=== PATIENT | female | born 1995 | race Caucasian/White ===

== ENCOUNTER 2022-05-11 02:04 | Emergency (ER) | payer SELFPAY ==
[~2022-05-11] VITALS: Ht 175.2 cm; Wt 100.0 kg
[2022-05-11 02:57] LABS: BILIRUBIN,URINE NEGATIVE (NEGATIVE); CLARITY,URINE CLEAR; COLOR,URINE YELLOW; GLUCOSE, URINE (UA) NEGATIVE (NEGATIVE); KETONES,URINE NEGATIVE (NEGATIVE); LEUKOCYTE ESTERASE ,URINE 3+ (NEGATIVE); NITRITE,URINE NEGATIVE (NEGATIVE); PROTEIN,URINE NEGATIVE (NEGATIVE)
[2022-05-11 03:14] LABS: BACTERIA,URINE FEW /HPF; SQUAMOUS EPITHELIAL CELL,UR 0-2 /HPF
--- NOTE | 2022-05-11 03:49 | ED GU-Female ---
General Chief Complaint: - Reproductive Stated Complaint: POSS UTI Nursing Triage Note: PT ARRIVAL TO ER WITH COMPLAINT OF BURNING WITH URINATION, URGENCY, AND BLOOD WHEN SHE WIPED. PT STATES THAT IT ALL STARTED AT MIDNIGHT TONIGHT. PT HAS HISTORY OF FREQUENT UTI'S. Source: patient Exam Limitations: no limitations History of Present Illness Date Seen by Provider: May 11, 2022 Time Seen by Provider: 02:18 Initial Comments Patient to the ER by private conveyance with chief complaint of dysuria off and on for the past month. This last episode started about a day ago. She uses AZO but has not been on any antibiotics. She is not having any nausea, back pain, history of kidney stones but she has noticed some blood-tinged urine today. She had her last menstrual period 3 days ago. She is not on control. She does not have allergies to any medications or other significant medical history. Allergies and Home Medications Allergies Coded Allergies: No Known Drug Allergies (Unverified , 05/11/22) Patient Home Medication List Home Medication List Reviewed: Yes Review of Systems Review of Systems Constitutional: No chills, No diaphoresis EENTM: No ear discharge, No ear pain Respiratory: No cough, No short of breath Cardiovascular: No edema, No palpitations Gastrointestinal: No abdominal pain, No constipation, No diarrhea, No nausea, No vomiting Genitourinary: see HPI, burning; denies discharge; dysuria, frequency; denies flank pain; hematuria All Other Systemes Reviewed Negative Unless Noted: Yes Past Mnopfhv-Qqcaco-Gfzold Hx Patient Social History Tobacco Use?: No Use of E-Cig and/or Vaping dev: No Substance use?: No Alcohol Use?: No Pt feels they are or have been: No Immunizations Up To Date Influenza Vaccine Up-to-Date: No; Not Current Past Medical History Last Menstrual Period: May 08, 2022 Physical Exam Vital Signs Vital Signs - First Documented 05/11/22 02:24 Temp 36.7 Pulse 100 Resp 18 B/P (MAP) 139/66 (90) Pulse Ox 100 O2 Delivery Room Air Capillary Refill : Less Than 3 Seconds Height, Weight, BMI Height: '" Weight: lbs. oz. kg; 32.00 BMI Method: General Appearance: WD/WN, mild distress HEENT: PERRL/EOMI, pharynx normal Neck: full range of motion, normal inspection Cardiovascular: normal peripheral pulses, regular rate, rhythm Respiratory: no respiratory distress, no accessory muscle use Neurologic/Psychiatric: alert, normal mood/affect, oriented x 3 Skin: normal color, warm/dry Progress/Results/Core Measures Suspected Sepsis SIRS Temperature: Pulse: 100 Respiratory Rate: 18 Blood Pressure 139 /66 Mean: 90 Results/Orders Lab Results Laboratory Tests Test 05/11/22 02:18 Range/Units Urine Color YELLOW Urine Clarity CLEAR Urine pH 6.0 5-9 Urine Specific [place] <=1.005 1.016-1.022 Urine Protein NEGATIVE NEGATIVE Urine Glucose (UA) NEGATIVE NEGATIVE Urine Ketones NEGATIVE NEGATIVE Urine Nitrite NEGATIVE NEGATIVE Urine Bilirubin NEGATIVE NEGATIVE Urine Urobilinogen 0.2 < = 1.0 MG/DL Urine Leukocyte Esterase 3+ H NEGATIVE Urine RBC (Auto) 3+ H NEGATIVE Urine RBC 10-25 H /HPF Urine WBC 10-25 H /HPF Urine Squamous Epithelial Cells 0-2 /HPF Urine Crystals NONE /LPF Urine Bacteria FEW H /HPF Urine Casts NONE /LPF Urine Mucus NEGATIVE /LPF Urine Culture Indicated YES My Orders Orders - JESUSITA VICENTE Ua Culture If Indicated (05/11/22 02:07) Urine Culture (05/11/22 02:18) Vital Signs/I&O 05/11/22 02:24 Temp 36.7 Pulse 100 Resp 18 B/P (MAP) 139/66 (90) Pulse Ox 100 O2 Delivery Room Air Capillary Refill : Less Than 3 Seconds Blood Pressure Mean: 90 Progress Note : Time: 03:52 Progress Note Gram of Rocephin and 60 mg IM Toradol for discomfort. Counseled appropriate use of AZO and role for antibiotics. We will put her on cephalexin for 5 days. Departure Impression Primary Impression: Urinary tract infection Qualified Codes: N30.01 - Acute cystitis with hematuria Disposition: HOME, SELF-CARE Condition: Stable Departure-Patient Inst. Decision time for Depature: 03:52 Referrals: NO,LOCAL PHYSICIAN (PCP/Family) Primary Care Physician Patient Instructions: Urinary Tract Infection, Adult (DC) Add. Discharge Instructions: Drink lots of fluids. Tylenol 1000 mg every 8 hours needed for pain. Ibuprofen 600 mg every 8 hours needed for pain. AZO 1 or 2 tablets twice a day as necessary to control painful urination for 4 to 5 days in a row. Cephalexin 500 mg twice a day with food starting tonight or tomorrow morning. Return to the ER promptly if you are having intractable symptoms. All discharge instructions reviewed with patient and/or family. Voiced understanding. Scripts Cephalexin (Cephalexin) 500 Mg Tablet 500 MG PO BID for 5 Days, #10 TAB 0 Refills Prov: JESUSITA VICENTE 05/11/22 JESUSITA VICENTE May 11, 2022 03:48
[2022-05-11] MEDS ORDERED: CEPH500T PO (03:54)
[2022-05-11] MEDS ORDERED: LIDOCAINE 1% INJ 20 ML VIAL INJ ONE (04:00)
[2022-05-11] MEDS ORDERED: cefTRIAXone 1,000 MG VIAL IM ONE (04:00)
[2022-05-11] MEDS ORDERED: KETOROLAC 60 MG/2 ML VIAL IM ONE (04:00)
[2022-05-11 04:07] VITALS: BP 127/60
== END 2022-05-11 04:07 | disposition home or self-care (01) ==
LOC: ER 02:13
DX: N39.0 Urinary tract infection, site not specified (principal)
CPT/HCPCS: 81000; 84703; 87088; 99284